=== PATIENT | female | born 1975 | race Caucasian/White ===

== ENCOUNTER 2016-07-30 12:53 | Emergency (ER) | payer MEDICAID ==
[~2016-07-30] VITALS: Ht 157.5 cm; Wt 90.0 kg
[2016-07-30] MEDS ORDERED: ACYC200C PO (12:58)
[2016-07-30] MEDS ORDERED: LOSA25TA12 PO (12:58)
[2016-07-30] MEDS ORDERED: IOHEXOL-350 100 ML BOTTLE ONE (13:25)
[2016-07-30] MEDS ORDERED: SODIUM CHLORIDE 0.9% 10ML VIAL ONE (13:25)
[2016-07-30 13:59] LABS: BASOPHILS % 0.3 % (0.0-2.0); EOSINOPHILS % 2.3 % (0.0-5.0); HEMATOCRIT. 39.2 % (36.0-48.0); HEMOGLOBIN. 13.2 g/dL (12.0-16.0); LYMPHOCYTES % 18.7 % (20.0-50.0); MEAN CORPUSCULAR VOLUME 92.3 fL (81.0-99.0); MEAN PLATELET VOLUME 8.1 fl (7.4-10.4); MONOCYTES % 5.7 % (2.0-8.0); PLATELET 282 x1000/uL (130-400); RED BLOOD CELL COUNT 4.25 mill/uL (4.2-5.4); RED CELL DISTRIBUTION WIDTH 13.7 % (11.6-14.6)
[2016-07-30 14:03] LABS: CHLORIDE 108 mEq/L (98-107)
[2016-07-30 14:06] LABS: CARBON DIOXIDE 26 mEq/L (21-32); PROTHROMBIN TIME 10.7 sec
[2016-07-30 14:08] LABS: *AMPHETAMINES SCREEN URINE NEGATIVE (NEGATIVE); *BARBITURATES SCREEN URINE NEGATIVE (NEGATIVE); *BENZODIAZEPINES SCREEN URINE NEGATIVE (NEGATIVE); *COCAINE SCREEN URINE NEGATIVE (NEGATIVE); CANNABINOID URINE SCREEN NEGATIVE (NEGATIVE); METHADONE URINE SCREEN NEGATIVE (NEGATIVE); OPIATES URINE SCREEN NEGATIVE (NEGATIVE); PHENCYCLIDINE URINE SCREEN NEGATIVE (NEGATIVE)
[2016-07-30 14:13] LABS: TROPONIN I < 0.02 ng/mL (0.00-0.04)
[2016-07-30 16:34] LABS: HCG SCREEN NEGATIVE
[2016-07-30 18:47] VITALS: BP 114/74
== END 2016-07-30 19:00 | disposition home or self-care (01) ==
LOC: ER 13:09
DX: R07.89 Other chest pain (principal); R03.0 Elevated blood-pressure reading, without diagnosis of hypertension; E78.00 Pure hypercholesterolemia, unspecified; Z88.0 Allergy status to penicillin
CPT/HCPCS: 36415; 71010; 71275; 80048; 80305; 83880; 84484; 84703; 85025; 85379; 85610; 93005; 99285; A4216; Q9967; Z7610

== ENCOUNTER 2016-10-25 11:56 | Emergency (ER) | payer MEDICAID ==
[~2016-10-25] VITALS: Ht 157.5 cm; Wt 81.0 kg
[~2016-10-25 11:56] MED LIST: ACYC200C PO; LOSA25TA12 PO
[2016-10-25] MEDS ORDERED: LORAZEPAM 2MG/ML CPJ IM ONE (13:15)
[2016-10-25 14:25] VITALS: BP 126/70
[2016-10-25 15:33] LABS: CLARITY URINE CLEAR (CLEAR); COLOR URINE YELLOW (YELLOW); GLUCOSE URINE NEGATIVE (NEGATIVE); KETONES URINE NEGATIVE (NEGATIVE); LEUKOCYTE ESTERASE URINE NEGATIVE (NEGATIVE); NITRITE URINE NEGATIVE (NEGATIVE); OCCULT BLOOD URINE NEGATIVE (NEGATIVE); PH URINE 6.5 (4.5-8.0); PROTEIN URINE NEGATIVE (NEGATIVE); SPECIFIC GRAVITY URINE 1.008 (1.005-1.030); UROBILINOGEN URINE 0.2 E.U./dL (0.2-1.0)
== END 2016-10-25 15:14 | disposition home or self-care (01) ==
LOC: ER 12:06
DX: F41.9 Anxiety disorder, unspecified (principal); F32.9 Major depressive disorder, single episode, unspecified; Z88.0 Allergy status to penicillin
CPT/HCPCS: 81003; 81025; 96372; 99284; J2060; Z7610; 99283

== ENCOUNTER 2017-01-09 08:57 | Emergency (ER) | payer MEDICAID ==
[~2017-01-09] VITALS: Ht 162.6 cm; Wt 80.0 kg
[2017-01-09 10:55] LABS: BASOPHILS % 0.4 % (0.0-2.0); EOSINOPHILS % 4.7 % (0.0-5.0); HEMATOCRIT. 41.6 % (36.0-48.0); HEMOGLOBIN. 14.3 g/dL (12.0-16.0); LYMPHOCYTES % 30.4 % (20.0-50.0); MEAN CORPUSCULAR HEMOGLOBIN 31.6 pg (28.0-32.0); MEAN CORPUSCULAR VOLUME 92.2 fL (81.0-99.0); MEAN PLATELET VOLUME 8.2 fl (7.4-10.4); NEUTROPHILS % 57.5 % (40.0-76.0); PLATELET 348 x1000/uL (130-400); RED BLOOD CELL COUNT 4.51 mill/uL (4.2-5.4); RED CELL DISTRIBUTION WIDTH 14.2 % (11.6-14.6)
[2017-01-09 11:09] LABS: CARBON DIOXIDE 22 mEq/L (21-32); CHLORIDE 108 mEq/L (98-107)
[2017-01-09 12:54] LABS: CLARITY URINE CLOUDY (CLEAR); COLOR URINE YELLOW (YELLOW); GLUCOSE URINE NEGATIVE (NEGATIVE); KETONES URINE NEGATIVE (NEGATIVE); LEUKOCYTE ESTERASE URINE TRACE (NEGATIVE); NITRITE URINE NEGATIVE (NEGATIVE); OCCULT BLOOD URINE NEGATIVE (NEGATIVE); PROTEIN URINE NEGATIVE (NEGATIVE); SPECIFIC GRAVITY URINE 1.022 (1.005-1.030); UROBILINOGEN URINE 0.2 E.U./dL (0.2-1.0)
[2017-01-09] MEDS ORDERED: IBUPROFEN 600MG TABLET PO ONE (13:00)
[2017-01-09 13:34] VITALS: BP 97/58
== END 2017-01-09 14:13 | disposition home or self-care (01) ==
LOC: ER 09:07
DX: M54.2 Cervicalgia (principal); N39.0 Urinary tract infection, site not specified; R20.0 Anesthesia of skin; Z88.0 Allergy status to penicillin
CPT/HCPCS: 36415; 70450; 72125; 80053; 81001; 81025; 85025; 99285; Z7610

== ENCOUNTER 2017-09-08 02:25 | Emergency (ER) | payer MEDICAID ==
[~2017-09-08] VITALS: Ht 157.5 cm; Wt 83.4 kg
[2017-09-08] MEDS ORDERED: ALPRAZOLAM 0.25 MG TABLET PO ONE (04:00)
[2017-09-08 04:39] VITALS: BP 132/88
== END 2017-09-08 04:45 | disposition home or self-care (01) ==
LOC: ER 02:25
DX: F41.9 Anxiety disorder, unspecified (principal); E78.00 Pure hypercholesterolemia, unspecified; Z88.0 Allergy status to penicillin; Z88.1 Allergy status to other antibiotic agents; Z88.3 Allergy status to other anti-infective agents
CPT/HCPCS: 99283; C1893; Z7610

== ENCOUNTER 2018-06-10 15:31 | Emergency (ER) | payer MEDICAID ==
[~2018-06-10] VITALS: Ht 152.4 cm; Wt 89.0 kg
[2018-06-10] MEDS ORDERED: SODIUM CHLORIDE 0.9% 1,000 ML IV ONE (16:18)
[2018-06-10] MEDS ORDERED: ACETAMINOPHEN 325MG TABLET PO STA (16:18)
[2018-06-10] MEDS ORDERED: ASPIRIN 81MG TABLET PO ONE (16:30)
[2018-06-10 16:48] LABS: BASOPHILS % 0.5 % (0.0-2.0); EOSINOPHILS % 3.1 % (0.0-5.0); HEMATOCRIT. 40.9 % (36.0-48.0); LYMPHOCYTES % 26.8 % (20.0-50.0); MEAN CORPUSCULAR HEMOGLOBIN 31.8 pg (28.0-32.0); MEAN PLATELET VOLUME 7.8 fl (7.4-10.4); MONOCYTES % 7.4 % (2.0-8.0); NEUTROPHILS % 62.2 % (40.0-76.0); PLATELET 354 x1000/uL (130-400); RED BLOOD CELL COUNT 4.39 mill/uL (4.2-5.4)
[2018-06-10 16:51] LABS: CHLORIDE 111 mEq/L (98-107)
[2018-06-10 16:52] LABS: PROTHROMBIN TIME 10.3 sec (9.6-11.0)
[2018-06-10 17:08] LABS: HCG SCREEN NEGATIVE
[2018-06-10 19:15] VITALS: BP 131/64
== END 2018-06-10 19:16 | disposition home or self-care (01) ==
LOC: ER 15:31
DX: R07.89 Other chest pain (principal); F41.9 Anxiety disorder, unspecified; E78.00 Pure hypercholesterolemia, unspecified; Z88.0 Allergy status to penicillin; Z88.1 Allergy status to other antibiotic agents
CPT/HCPCS: 36415; 71045; 80053; 81025; 83880; 84484; 84703; 85025; 85610; 93005; 99284; J7030

== ENCOUNTER 2019-10-25 22:40 | Emergency (ER) | payer MEDICAID ==
[~2019-10-25] VITALS: Ht 157.5 cm; Wt 97.0 kg
[~2019-10-25 22:40] MED LIST changes: -LOSA25TA12 PO; +LOSA25TA26 PO
[2019-10-25 22:52] VITALS: BP 132/97
[2019-10-25] MEDS ORDERED: FAMOTIDINE 20MG TABLET PO ONE (23:30)
[2019-10-25] MEDS ORDERED: ONDANSETRON 4MG ODT PO ONE (23:30)
[2019-10-25 23:51] LABS: BASOPHILS % 0.4 % (0.0-2.0); HEMATOCRIT. 40.3 % (36.0-48.0); HEMOGLOBIN. 13.5 g/dL (12.0-16.0); LYMPHOCYTES % 23.6 % (20.0-50.0); MEAN CORPUSCULAR HEMOGLOBIN 30.2 pg (28.0-32.0); MONOCYTES % 6.8 % (2.0-8.0); NEUTROPHILS % 67.2 % (40.0-76.0); PLATELET 325 x1000/uL (130-400); RED BLOOD CELL COUNT 4.48 mill/uL (4.2-5.4); RED CELL DISTRIBUTION WIDTH 13.6 % (11.6-14.6)
[2019-10-25 23:55] LABS: CLARITY URINE CLEAR (CLEAR); COLOR URINE YELLOW (YELLOW); KETONES URINE NEGATIVE (NEGATIVE); LEUKOCYTE ESTERASE URINE NEGATIVE (NEGATIVE); NITRITE URINE NEGATIVE (NEGATIVE); OCCULT BLOOD URINE NEGATIVE (NEGATIVE); PROTEIN URINE NEGATIVE (NEGATIVE); SPECIFIC GRAVITY URINE 1.006 (1.005-1.030); UROBILINOGEN URINE 0.2 E.U./dL (0.2-1.0)
[2019-10-25 23:57] LABS: CHLORIDE 109 mEq/L (98-107)
[2019-10-25 23:59] LABS: PROTHROMBIN TIME 10.6 sec (9.6-11.0)
== END 2019-10-26 01:42 | disposition home or self-care (01) ==
LOC: ER 22:40
DX: K29.70 Gastritis, unspecified, without bleeding (principal); E78.00 Pure hypercholesterolemia, unspecified; G47.30 Sleep apnea, unspecified; Z88.3 Allergy status to other anti-infective agents; Z88.0 Allergy status to penicillin
CPT/HCPCS: 36415; 80053; 81003; 83690; 85025; 85610; 87426; 93005; 99284; Q0162